=== PATIENT | female | born 1975 | race Caucasian/White ===

== ENCOUNTER 2016-07-27 00:02 | Emergency (ER) | payer MEDICAID ==
[~2016-07-27] VITALS: Ht 157.5 cm; Wt 104.3 kg
[2016-07-27] MEDS ORDERED: NKM (00:22)
[2016-07-27 00:27] VITALS: BP 138/72
[2016-07-27] MEDS ORDERED: Ipratropium 0.02% Inh Soln 2.5ml UD HHN ONE (00:45)
[2016-07-27] MEDS ORDERED: Solu-MEDROL 125mg Inj IVP ONE (00:45)
[2016-07-27] MEDS ORDERED: Albuterol ud Inhalation HHN ONE (00:45)
--- NOTE | 2016-07-27 00:47 | Emergency Room Report ---
History of Present Illness General Chief Complaint: Dyspnea/Respdistress Source: Patient Present Illness HPI Is a 41-year-old female with history of psoriasis. She presents with three-day history of coughing congestion. Worse tonight. Now with tightness in her chest. Pain with coughing. No fever or chills. Worse with exertion. Worse with laying flat. Lsvh-zjc-khredct medication not helping. No other complaint. No diaphoresis. Allergies: Coded Allergies: No Known Allergies (Unverified , 03/19/12) Patient History Past Medical History: see triage record, old chart reviewed Past Surgical History: none Pertinent Family History: none Social History: Denies: smoking Last Menstrual Period: now Now: No : 3 Para: 3 Immunizations: other Reviewed Nursing Documentation: PMH: Agreed, PSxH: Agreed Nursing Documentation-PMH Past Medical History: No Stated History Review of Systems Eye: Denies: blurred vision, eye pain ENT: Denies: ear pain, nose congestion, throat swelling Respiratory: Reports: cough, shortness of breath, sputum Cardiovascular: Denies: chest pain, palpitations Gastrointestinal: Denies: abdominal pain, diarrhea, nausea, vomiting Musculoskeletal: Denies: back pain, joint pain Skin: Denies: rash Neurological: Denies: headache, numbness Endocrine: Denies: increased thirst, increased urine Hematologic/Lymphatic: Denies: easy bruising All Other Systems: negative except mentioned in HPI Physical Exam Vital Signs Date Time Temp Pulse Resp B/P Pulse Ox O2 Delivery O2 Flow Rate FiO2 07/27/16 00:17 99.0 103 20 138/72 98 Room Air vitals unremarkable Sp02 EP Interpretation: reviewed, normal General Appearance: well appearing, alert, mild distress, obese Head: normocephalic, atraumatic Eyes: bilateral eye EOMI, bilateral eye PERRL ENT: hearing grossly normal, normal pharynx Neck: full range of motion, supple, no meningismus Respiratory: chest non-tender, accessory muscle use, wheezing Cardiovascular #1: regular rate, rhythm, no murmur Gastrointestinal: normal bowel sounds, non tender, no mass, no organomegaly, no bruit, non-distended Musculoskeletal: back normal, gait/station normal, normal range of motion Psychiatric: mood/affect normal Skin: warm/dry Medical Decision Making Diagnostic Impression: Primary Impression: Asthma exacerbation Additional Impression: Viral bronchitis ER Course Patient presents with a viral illness with bronchospasm and wheezing. Wheezing cleared after albuterol. She felt much better now. X-rays unremarkable. No evidence of pneumonia or ACS or PE to name a few. We'll discharge him. Lab Results Impression lab unremarkable EKG Diagnostic Results Rate: normal Rhythm: NSR ST Segments: no acute changes Rhythm Strip Diag. Results EP Interpretation: yes Rate: 90 Rhythm: NSR, no PVC's, no ectopy Chest X-Ray Diagnostic Results EP Interpretation: Yes Findings: no consolidation, no effusion, no pneumothorax, no acute cardiopulmonary disease Number of Views: 1 Last Vital Signs Date Time Temp Pulse Resp B/P Pulse Ox O2 Delivery O2 Flow Rate FiO2 07/27/16 00:41 97 27 Room Air 07/27/16 00:27 99.0 138/72 97 Status: improved Disposition: HOME, SELF-CARE Condition: Stable Scripts Prednisone* (PREDNISONE*) 20 Mg Tablet 60 MG ORAL DAILY, #15 TAB Prov: RINA MADRID M.D. 07/27/16 Albuterol Sulfate* (ALBUTEROL SULFATE MDI*) 8.5 Gm Hfa.aer.ad 2 PUFF INH Q4H Y for cough/wheezing, #1 EA 0 Refills Prov: RINA MADRID M.D. 07/27/16 Additional Instructions: Follow up with your doctor in 7 days. Return if worse. RINA MADRID M.D. Jul 27, 2016 00:47
[2016-07-27 01:47] VITALS: BP 134/64
[2016-07-27 02:05] LABS: BASOPHILS % (AUTO) 0.9 % (0.0-2.0); EOSINOPHILS % (AUTO) 4.3 % (0.0-3.0); LYMPHOCYTES % (AUTO) 18.1 % (20.0-45.0); MEAN CORPUSCULAR HEMOGLOBIN 26.7 PG (27.0-31.0); MEAN CORPUSCULAR HGB CONC 31.7 G/DL (32.0-36.0); MEAN CORPUSCULAR VOLUME 84 FL (80-99); MEAN PLATELET VOLUME 7.2 FL (6.5-10.1); MONOCYTES % (AUTO) 9.8 % (1.0-10.0); NEUTROPHILS % (AUTO) 66.8 % (45.0-75.0); PLATELET COUNT 343 K/UL (150-450); RED BLOOD COUNT 4.62 M/UL (4.20-5.40); RED CELL DISTRIBUTION WIDTH 13.2 % (11.6-14.8); WHITE BLOOD COUNT 12.4 K/UL (4.8-10.8)
[2016-07-27 02:32] LABS: CALCIUM 8.5 mg/dL (8.6-10.2); CARBON DIOXIDE 24 mEQ/L (20-30); CREATININE 0.7 mg/dL (0.5-0.9); GLOMERULAR FILTRATION RATE > 60 mL/min (>60)
[2016-07-27 02:44] LABS: ANION GAP 12 (5-15); CHLORIDE 103 mEQ/L (98-107); POTASSIUM 4.1 mEQ/L (3.4-4.9); SODIUM 139 mEQ/L (135-145)
[2016-07-27] MEDS ORDERED: ALBUTEROL SULF8.5 GM INH (02:53)
[2016-07-27] MEDS ORDERED: PREDNISONE20 MG ORAL (02:53)
[2016-07-27 03:18] VITALS: BP 147/86
--- NOTE | 2016-08-03 10:30 | Cardiology Report ---
APPROVED REPORT EKG Measurement Heart [id number] Normal sinus rhythm Normal ECG
--- NOTE | 2016-08-03 10:31 | Diagnostic Imaging Report ---
Indication: SOB Technique: One view of the chest Comparison: 01/13/2006 Findings: Body habitus limits evaluation. Lungs and pleural spaces are clear. Heart size is normal. There is no significant interim change Impression: No acute process
== END 2016-07-27 03:10 | disposition home or self-care (01) ==
LOC: EMR 00:47
DX: J45.901 Unspecified asthma with (acute) exacerbation (principal); J20.8 Acute bronchitis due to other specified organisms; L40.9 Psoriasis, unspecified
CPT/HCPCS: 36415; 71010; 80048; 85025; 93005; 94640; 94664; 96374; 99284; J2930

== ENCOUNTER 2016-12-06 22:02 | Emergency (ER) | payer MEDICAID ==
[~2016-12-06] VITALS: Ht 157.5 cm; Wt 99.8 kg
[~2016-12-06 22:02] MED LIST: ALBUTEROL SULF8.5 GM INH; NKM; PREDNISONE20 MG ORAL
[2016-12-06 22:25] VITALS: BP 134/49
--- NOTE | 2016-12-06 22:35 | Emergency Room Report ---
History of Present Illness General Chief Complaint: Vaginal Source: Patient Present Illness HPI Is a 41-year-old female who is 4, para 3, approximately 8 weeks . His base on the date. She scheduled for as an outpatient. she came in today with chief complaint of vaginal cramping and bleeding. onset tonight. no fever or chills. no nausea no vomiting. no urinary complaint. pain is crampy and 5/10. Allergies: Coded Allergies: No Known Allergies (Unverified , 03/19/12) Patient History Past Medical History: see triage record, old chart reviewed Past Surgical History: other Pertinent Family History: none Social History: Denies: smoking Last Menstrual Period: 10/13/16 Now: Yes : 4 Para: 3 Immunizations: other Reviewed Nursing Documentation: PMH: Agreed, PSxH: Agreed Nursing Documentation-PMH Hx Cardiac Problems: No - Psoriasis Review of Systems Eye: Denies: blurred vision, eye pain ENT: Denies: ear pain, nose congestion, throat swelling Respiratory: Denies: cough, shortness of breath Cardiovascular: Denies: chest pain, palpitations Gastrointestinal: Denies: abdominal pain, diarrhea, nausea, vomiting Musculoskeletal: Denies: back pain, joint pain Skin: Denies: rash Neurological: Denies: headache, numbness Endocrine: Denies: increased thirst, increased urine Hematologic/Lymphatic: Denies: easy bruising All Other Systems: negative except mentioned in HPI Physical Exam Vital Signs Date Time Temp Pulse Resp B/P Pulse Ox O2 Delivery O2 Flow Rate FiO2 12/06/16 22:15 98.4 87 22 134/49 97 Room Air vitals normal Sp02 EP Interpretation: reviewed, normal General Appearance: well appearing, no apparent distress, alert, obese Head: normocephalic, atraumatic Eyes: bilateral eye EOMI, bilateral eye PERRL ENT: hearing grossly normal, normal pharynx Neck: full range of motion, supple, no meningismus Respiratory: chest non-tender, lungs clear, normal breath sounds Cardiovascular #1: regular rate, rhythm, no murmur Gastrointestinal: normal bowel sounds, non tender, no mass, no organomegaly, no bruit, non-distended Musculoskeletal: back normal, gait/station normal, normal range of motion Neurologic: alert, oriented x3 Psychiatric: mood/affect normal Skin: warm/dry Medical Decision Making Diagnostic Impression: Primary Impression: in first trimester ER Course Patient presents with vaginal bleeding. While here she has a large clot was giving urine sample. Ultrasound unable to see any IUP. There was a lot of blood in the vaginal vault. Doubt that this is an ectopic. Most likely she has a miscarriage. Last Vital Signs Date Time Temp Pulse Resp B/P Pulse Ox O2 Delivery O2 Flow Rate FiO2 12/06/16 22:25 98.5 87 22 134/49 97 Room Air Status: improved Disposition: HOME, SELF-CARE Condition: Stable Scripts Ibuprofen* (MOTRIN*) 600 Mg Tablet 600 MG ORAL THREE TIMES A DAY, #30 TAB 0 Refills Prov: RINA MADRID M.D. 12/06/16 Referrals: NON PHYSICIAN (PCP) Additional Instructions: Followup with your [employer] within a week. Return for increasing pain, fever, chills, or any concern. RINA MADRID M.D. December 06, 2016 22:35
[2016-12-06 22:54] LABS: BASOPHILS % (AUTO) 1.5 % (0.0-2.0); EOSINOPHILS % (AUTO) 3.2 % (0.0-3.0); LYMPHOCYTES % (AUTO) 30.8 % (20.0-45.0); MEAN CORPUSCULAR HEMOGLOBIN 28.6 PG (27.0-31.0); MEAN CORPUSCULAR HGB CONC 33.6 G/DL (32.0-36.0); MEAN CORPUSCULAR VOLUME 85 FL (80-99); MEAN PLATELET VOLUME 6.8 FL (6.5-10.1); MONOCYTES % (AUTO) 9.4 % (1.0-10.0); NEUTROPHILS % (AUTO) 55.1 % (45.0-75.0); PLATELET COUNT 332 K/UL (150-450); RED BLOOD COUNT 4.49 M/UL (4.20-5.40); RED CELL DISTRIBUTION WIDTH 14.1 % (11.6-14.8); WHITE BLOOD COUNT 11.2 K/UL (4.8-10.8)
[2016-12-06 22:57] LABS: APPEARANCE,URINE TURBID; KETONES,URINE NEGATIVE (NEGATIVE); LEUKOCYTE ESTERASE ,URINE NEGATIVE (NEGATIVE); NITRITE,URINE NEGATIVE (NEGATIVE); PH,URINE 7 (4.5-8.0); PROTEIN,URINE 3+ (NEGATIVE); UROBILINOGEN,URINE NORMAL MG/DL (0.0-1.0)
[2016-12-06 22:59] LABS: RBC,URINE TNTC /HPF (0 - 2); WBC,URINE 0-2 /HPF (0 - 2)
[2016-12-06 23:17] LABS: ANION GAP 16 (5-15); CALCIUM 9.7 mg/dL (8.6-10.2); CARBON DIOXIDE 23 mEQ/L (20-30); CHLORIDE 98 mEQ/L (98-107); CREATININE 0.7 mg/dL (0.5-0.9); GLOMERULAR FILTRATION RATE > 60 mL/min (>60); HEMOLYSIS 1; POTASSIUM 4.2 mEQ/L (3.4-4.9); SODIUM 137 mEQ/L (135-145)
[2016-12-06] MEDS ORDERED: Ketorolac 30mg Inj IV ONE (23:45)
[2016-12-06] MEDS ORDERED: IBUPROFEN600 MG ORAL (23:49)
[2016-12-06 23:58] VITALS: BP 131/53
--- NOTE | 2016-12-07 09:45 | Diagnostic Imaging Report ---
Indication: 41-year-old reportedly female with bleeding. Technique: Transabdominal and endovaginal pelvic ultrasound. Comparison: None Findings: Examination is markedly limited by habitus. The uterus grossly measures 10.8 x 7.5 x 7.0 cm. A definitive intrauterine is not identified. The endometrial echo complex is not adequately seen. Cervical nabothian cyst is present. The right ovary grossly measures 5.1 x 2.3 cm. The left ovary is not seen. Impression: Markedly limited examination without definitive identification of intrauterine . Differential considerations could include spontaneous or intrauterine too early to detect sonographically. In the absence of a documented intrauterine , ectopic cannot be excluded. Correlation with beta hCG recommended. Repeat ultrasound recommended.
== END 2016-12-06 23:58 | disposition home or self-care (01) ==
LOC: EMR 22:11
DX: O03.9 Complete or unspecified spontaneous abortion without complication (principal)
CPT/HCPCS: 36415; 76830; 76856; 80048; 81003; 84702; 85025; 96374; 99284; J1885

== ENCOUNTER 2017-09-03 16:24 | Emergency (ER) | payer MEDICAID, OTHER ==
[~2017-09-03] VITALS: Ht 157.5 cm; Wt 99.8 kg
[~2017-09-03 16:24] MED LIST changes: +IBUPROFEN600 MG ORAL
--- NOTE | 2017-09-03 18:09 | Emergency Room Report ---
History of Present Illness General Chief Complaint: Eye Problems Source: Patient Present Illness HPI 42-year-old female presents to the emergency department complaining of 3/10 in severity discomfort to the eyelid of the right eye x2 days. Patient reports symptoms are progressive she denies erythema she reports a palpable "ball" on her eyelid. Patient reports some mild discomfort especially after palpation. Patient denies visual changes, discharge of the eye, scratching sensation. Denies: Eye Pain with movements, eye Redness, Loss of vision, Floaters, Flashing lights, Diplopia/blurry vision, Increased tearing. Allergies: Coded Allergies: No Known Allergies (Unverified , 03/19/12) Patient History Past Medical History: see triage record Past Surgical History: none Pertinent Family History: none Last Menstrual Period: 2-4 Now: No Reviewed Nursing Documentation: PMH: Agreed, PSxH: Agreed Nursing Documentation-PMH Past Medical History: No History, Except For Review of Systems All Other Systems: negative except mentioned in HPI Physical Exam Vital Signs Date Time Temp Pulse Resp B/P (MAP) Pulse Ox O2 Delivery O2 Flow Rate FiO2 09/03/17 16:26 97.9 97 18 117/63 98 Room Air Sp02 EP Interpretation: reviewed, normal General Appearance: no apparent distress, alert, GCS 15, non-toxic Head: normocephalic, atraumatic Eyes: right eye other - flesh colored papule, localized and well circumscribed to the right lateral lower eyelid, no erythema, no pus, no blisters or vesicles. no scleral injection, no photophopia. , bilateral eye normal inspection, bilateral eye PERRL, bilateral eye EOMI ENT: hearing grossly normal, normal voice Neck: full range of motion Respiratory: lungs clear, normal breath sounds, speaking full sentences Cardiovascular #1: regular rate, rhythm Musculoskeletal: back normal, gait/station normal, normal range of motion Neurologic: alert, oriented x3, responsive, motor strength/tone normal, sensory intact, normal gait, speech normal, grossly normal Psychiatric: judgement/insight normal Skin: normal color, no rash, warm/dry, well hydrated Medical Decision Making PA Attestation Dr Garcia is my supervising Physician whom patient management has been discussed with. Diagnostic Impression: Primary Impression: Stye external Qualified Codes: H00.012 - Hordeolum externum right lower eyelid ER Course 42-year-old female presents to the emergency department complaining of 3/10 in severity discomfort to the eyelid of the right eye x2 days. Patient reports symptoms are progressive she denies erythema she reports a palpable "ball" on her eyelid. Patient reports some mild discomfort especially after palpation. Patient denies visual changes, discharge of the eye, scratching sensation. Denies: Eye Pain with movements, eye Redness, Loss of vision, Floaters, Flashing lights, Diplopia/blurry vision, Increased tearing. Ddx considered but are not limited to: FB, Corneal Ulcer, conjunctivitis. Iridis, hordeolum, chalazion. Vital signs: are WNL, pt. is afebrile H&PE are most consistent with: hordeolum externum of the Right lower lateral eyelid. ORDERS: None required at this time ED INTERVENTIONS: none at this time. d/w pt. conservative treatment, and to follow up with a primary care provider. pt given a list of primary care clinics for follow up. d/w pt. to return to the ED with worsening or new symptoms. DISCHARGE: At this time pt. is stable for d/c to home. Will provide printed patient care instructions, and any necessary prescriptions. Care plan and follow up instructions have been discussed with the patient prior to discharge. Last Vital Signs Date Time Temp Pulse Resp B/P (MAP) Pulse Ox O2 Delivery O2 Flow Rate FiO2 09/03/17 16:26 97.9 97 18 117/63 98 Room Air Disposition: HOME, SELF-CARE Condition: Stable Scripts Ibuprofen* (MOTRIN*) 400 Mg Tablet 400 MG ORAL THREE TIMES A DAY, #20 TAB 0 Refills Prov: Nicol Lares P.Laila 09/03/17 Erythromycin Base (Erythromycin) 1 Gm Oint...g. 1 APPLIC OP TID, #1 GM 2 Refills Prov: Nicol Lares P.AMaynor 09/03/17 Referrals: [facility],REFERRING (PCP) Patient Instructions: Yazan Additional Instructions: Take medications as directed. Follow up with a [employer] Operator in 3 days, even if your symptoms have resolved. --Please review list of primary care clinics, if you do not already have a primary care provider Return sooner to ED if new symptoms occur, or current symptoms become worse. - Please note that this Emergency Department Report was dictated using [employer] team member technology software, occasionally this can lead to erroneous entry secondary to interpretation by the dictation equipment. Nicol Lares Sep 03, 2017 18:09
[2017-09-03] MEDS ORDERED: ERYTHROMYCIN1 G1 OP (18:10)
[2017-09-03] MEDS ORDERED: IBUPROFEN400 MG ORAL (18:10)
[2017-09-03 18:25] VITALS: BP 120/78
== END 2017-09-03 18:25 | disposition home or self-care (01) ==
LOC: EMR 17:25
DX: H00.023 Hordeolum internum right eye, unspecified eyelid (principal)
CPT/HCPCS: 99283

== ENCOUNTER 2018-02-27 06:19 | Emergency (ER) | payer SELFPAY ==
[~2018-02-27] VITALS: Ht 157.5 cm; Wt 99.8 kg
[~2018-02-27 06:19] MED LIST changes: +ACETAMINOPHEN-1 EAC1 ORAL; +BACITRACIN15 GM TOPIC; +ERYTHROMYCIN1 G1 OP; +IBUPROFEN400 MG ORAL
--- NOTE | 2018-02-27 06:33 | Emergency Room Report ---
History of Present Illness General Chief Complaint: Wound Recheck/Suture Removal Source: Patient Present Illness HPI Patient states she is here for suture removal. She had sutures placed in her left for had one week ago. She has no other complaints. Allergies: Coded Allergies: No Known Allergies (Unverified , 03/19/12) Patient History Past Medical History: other - psoriasis Past Surgical History: none Social History: Denies: smoking, alcohol use, drug use Last Menstrual Period: february 21 Now: No Reviewed Nursing Documentation: PMH: Agreed; PSxH: Agreed Review of Systems All Other Systems: negative except mentioned in HPI Physical Exam Vital Signs Date Time Temp Pulse Resp B/P (MAP) Pulse Ox O2 Delivery O2 Flow Rate FiO2 02/27/18 06:20 98.1 77 18 124/71 96 Room Air 98.1 Sp02 EP Interpretation: reviewed, normal General Appearance: no apparent distress, alert, GCS 15, non-toxic Head: normocephalic, other - Healing L. forehead laceration with sutures in place. Eyes: bilateral eye normal inspection, bilateral eye PERRL ENT: hearing grossly normal, normal pharynx, no angioedema, normal voice Neck: normal inspection, full range of motion Respiratory: no respiratory distress, no retraction, no accessory muscle use, speaking full sentences Rectal: deferred Musculoskeletal: gait/station normal, normal range of motion Neurologic: alert, oriented x3, responsive, motor strength/tone normal, sensory intact, speech normal Psychiatric: judgement/insight normal, memory normal, mood/affect normal, no suicidal/homicidal ideation Skin: normal color, no rash, warm/dry, well hydrated, other - See above in Head Medical Decision Making Diagnostic Impression: Primary Impression: Encounter for removal of sutures ER Course This patient presents for removal of sutures. The wound is healing well and the sutures were removed without complication or incident. The patient is given wound care precautions and follow-up instructions. Last Vital Signs Date Time Temp Pulse Resp B/P (MAP) Pulse Ox O2 Delivery O2 Flow Rate FiO2 02/27/18 06:20 98.1 77 18 124/71 96 Room Air 98.1 Status: improved Disposition: HOME, SELF-CARE Condition: Improved Referrals: NOT CHOSEN [facility]/,REFERRING (PCP) Lina Doe DO Feb 27, 2018 06:33
[2018-02-27 07:02] VITALS: BP 125/64
== END 2018-02-27 07:10 | disposition home or self-care (01) ==
LOC: EMR 06:26
DX: S01.81XD Laceration without foreign body of other part of head, subsequent encounter (principal); X58.XXXD Exposure to other specified factors, subsequent encounter; Z48.02 Encounter for removal of sutures
CPT/HCPCS: 99282

== ENCOUNTER 2019-02-01 17:56 | Emergency (ER) | payer SELFPAY ==
[~2019-02-01] VITALS: Ht 157.5 cm; Wt 104.3 kg
[2019-02-01 18:05] VITALS: BP 140/84
--- NOTE | 2019-02-01 18:05 | NUR ---
ED Nurse Note: pt walked in due to bilateral lower extremity pain and swelling started 6 days ago. pt also complains of itchiness. pt stated she was diagnosed with psoriasis in her childhood, skin rash noted on pt bilateral leg and swelling as well, psoriasis noted on pt back and shoulder area. pt seen by manju. will continue to monitor.
[2019-02-01] MEDS ORDERED: Solu-MEDROL 125mg Inj IVP ONE (18:15)
[2019-02-01] MEDS ORDERED: DiphenhydrAMINE 50mg/ml Inj IVP ONE (18:15)
--- NOTE | 2019-02-01 18:23 | NUR ---
ED Nurse Note: pt medicated as ordered, pt able to tolerate. will continue to monitor.
--- NOTE | 2019-02-01 18:29 | NUR ---
ED Nurse Note: xray on bedside.
[2019-02-01 18:45] LABS: BASOPHILS % (AUTO) 1.4 % (0.0-2.0); EOSINOPHILS % (AUTO) 1.7 % (0.0-3.0); HEMATOCRIT 36.2 % (37.0-47.0); MEAN CORPUSCULAR VOLUME 79 FL (80-99); MONOCYTES % (AUTO) 8.2 % (1.0-10.0); NEUTROPHILS % (AUTO) 73.6 % (45.0-75.0); PLATELET COUNT 373 K/UL (150-450); RED BLOOD COUNT 4.58 M/UL (4.20-5.40); RED CELL DISTRIBUTION WIDTH 15.4 % (11.6-14.8); WHITE BLOOD COUNT 11.4 K/UL (4.8-10.8)
[2019-02-01 18:47] LABS: ANION GAP 12 mmol/L (5-15); BLOOD UREA NITROGEN 8 mg/dL (7-18); CARBON DIOXIDE 25 MMOL/L (21-32); CHLORIDE 100 MMOL/L (98-107); CREATININE 0.8 MG/DL (0.55-1.30); POTASSIUM 3.7 MMOL/L (3.5-5.1); SODIUM 137 MMOL/L (136-145)
[2019-02-01 19:01] LABS: ALANINE AMINOTRANSFERASE 21 U/L (12-78); ALBUMIN 3.6 G/DL (3.4-5.0); ALBUMIN/GLOBULIN RATIO 0.8 (1.0-2.7); ALKALINE PHOSPHATASE 102 U/L (46-116); ASPARTATE AMINO TRANSFERASE 28 U/L (15-37); BILIRUBIN,TOTAL 0.3 MG/DL (0.2-1.0); CKMB 1.4 NG/ML (0.0-3.6); CREATINE KINASE 171 U/L (26-308)
--- NOTE | 2019-02-01 19:34 | Emergency Room Report ---
History of Present Illness General Chief Complaint: Edema Source: Patient Present Illness HPI Patient presents with complaints of exacerbation of her psoriasis reports that she has underlying diagnosis of this Condition however feels that over the past several days she has had increased exacerbation rash involving the lower extremities upper back area the area is Pleuritic in nature she also has noticed some mild swelling with this Denies any fevers or chills denies any chest pain or shortness of breath denies any vomiting or diarrhea denies any change in medications Allergies: Coded Allergies: No Known Allergies (Unverified , 03/19/12) Patient History Past Medical History: see triage record Pertinent Family History: none Last Menstrual Period: 01/12/19 Now: No Reviewed Nursing Documentation: PMH: Agreed; PSxH: Agreed Nursing Documentation-PMH Past Medical History: No History, Except For Review of Systems All Other Systems: negative except mentioned in HPI Physical Exam Vital Signs Date Time Temp Pulse Resp B/P (MAP) Pulse Ox O2 Delivery O2 Flow Rate FiO2 02/01/19 17:58 98.4 106 21 140/84 (102) 96 Sp02 EP Interpretation: reviewed, normal General Appearance: well appearing, no apparent distress Head: normocephalic, atraumatic Eyes: bilateral eye PERRL, bilateral eye EOMI ENT: hearing grossly normal, normal pharynx, TMs + canals normal, uvula midline Neck: full range of motion, supple, no meningismus, no bony tend Respiratory: lungs clear, normal breath sounds, no rhonchi, no respiratory distress, no retraction, no accessory muscle use Cardiovascular #1: normal peripheral pulses, regular rate, rhythm, no edema, no gallop, no JVD, no murmur Gastrointestinal: normal bowel sounds, non tender, soft, no mass, no organomegaly, non-distended, no guarding, no hernia, no pulsatile mass, no rebound Genitourinary: no CVA tenderness Musculoskeletal: normal inspection Neurologic: oriented x3, responsive, 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 as tested, motor strength/ tone normal, sensory intact Psychiatric: mood/affect normal Skin: rash - Maculopapular rash involving the lower extremities there is also nonspecific, rash involving the upper back in the upper chest area, nondermatomal in nature fine erythematous hue with mild central raised appearance no obvious target cell appearance no blister formation Lymphatic: normal inspection, no adenopathy Medical Decision Making Diagnostic Impression: Primary Impression: Rash Additional Impression: Psoriasis ER Course Multiple differentials and consideration Patient appears to be having a flare of her psoriasis Given the other complaints of swelling and discomfort further extensive work-up was initiated for cardiac, cardiopulmonary, renal type differentials Patient's other blood work is appropriate x-ray imaging does not show any acute pathology patient's rash is significantly improved after initial intervention patient requires close outpatient follow-up Labs Test 02/01/19 18:18 White Blood Count 11.4 K/UL (4.8-10.8) Red Blood Count 4.58 M/UL (4.20-5.40) Hemoglobin 11.0 G/DL (12.0-16.0) Hematocrit 36.2 % (37.0-47.0) Mean Corpuscular Volume 79 FL (80-99) Mean Corpuscular Hemoglobin 24.0 PG (27.0-31.0) Mean Corpuscular Hemoglobin Concent 30.3 G/DL (32.0-36.0) Red Cell Distribution Width 15.4 % (11.6-14.8) Platelet Count 373 K/UL (150-450) Mean Platelet Volume 6.2 FL (6.5-10.1) Neutrophils (%) (Auto) 73.6 % (45.0-75.0) Lymphocytes (%) (Auto) 15.0 % (20.0-45.0) Monocytes (%) (Auto) 8.2 % (1.0-10.0) Eosinophils (%) (Auto) 1.7 % (0.0-3.0) Basophils (%) (Auto) 1.4 % (0.0-2.0) Sodium Level 137 MMOL/L (136-145) Potassium Level 3.7 MMOL/L (3.5-5.1) Chloride Level 100 MMOL/L (98-107) Carbon Dioxide Level 25 MMOL/L (21-32) Anion Gap 12 mmol/L (5-15) Blood Urea Nitrogen 8 mg/dL (7-18) Creatinine 0.8 MG/DL (0.55-1.30) Estimat Glomerular Filtration Rate > 60 mL/min (>60) Glucose Level 126 MG/DL (74-106) Calcium Level 9.0 MG/DL (8.5-10.1) Total Bilirubin 0.3 MG/DL (0.2-1.0) Aspartate Amino Transf (AST/SGOT) 28 U/L (15-37) Alanine Aminotransferase (ALT/SGPT) 21 U/L (12-78) Alkaline Phosphatase 102 U/L (46-116) Total Creatine Kinase 171 U/L (26-308) Creatine Kinase MB 1.4 NG/ML (0.0-3.6) Creatine Kinase MB Relative Index 0.8 Troponin I 0.000 ng/mL (0.000-0.056) Pro-B-Type Natriuretic Peptide 40 pg/mL (0-125) Total Protein 8.0 G/DL (6.4-8.2) Albumin 3.6 G/DL (3.4-5.0) Globulin 4.4 g/dL Albumin/Globulin Ratio 0.8 (1.0-2.7) Rhythm Strip Diag. Results EP Interpretation: yes Rate: 77 Rhythm: NSR, no PVC's, no ectopy Chest X-Ray Diagnostic Results Chest X-Ray Diagnostic Results : Chest X-Ray Ordered: Yes # of Views/Limited/Complete: 1 View Indication: Chest Pain EP Interpretation: Yes Interpretation: no consolidation, no effusion, no pneumothorax Impression: No acute disease Electronically Signed by: Nakia Duarte DO Last Vital Signs Date Time Temp Pulse Resp B/P (MAP) Pulse Ox O2 Delivery O2 Flow Rate FiO2 02/01/19 18:05 106 21 02/01/19 18:05 98.4 140/84 96 Status: improved Disposition: HOME, SELF-CARE Condition: Improved Scripts Hydrocortisone/Aloe Vera 1%* (HYDROCORTISONE-ALOE 1% CREAM*) Y Cr 1 APPLIC TOPIC Q6H PRN for Itching for 7 Days, #30 GM Prov: Nakia Duarte DO 02/01/19 Diphenhydramine Hcl* (BENADRYL*) 25 Mg Capsule 25 MG ORAL Q6H PRN for Itching, #20 CAP Prov: Nakia Duarte DO 02/01/19 Methylprednisolone (Methylprednisolone*) 4MG Dspk 4 MG ORAL DIRECTED for 6 Days, #21 EA 0 Refills Day 1: Two tablets before breakfast, one after lunch, one after dinner, and two at bedtime. If started late in the day, take all six tablets at once or divide into two or three doses, unless otherwise directed by prescriber. Day 2: One tablet before breakfast, one after lunch, one after dinner, and two at bedtime Day 3: One tablet before breakfast, one after lunch, one after dinner, and one at bedtime Day 4: One tablet before breakfast, one after lunch, and one at bedtime Day 5: One tablet before breakfast and one at bedtime Day 6: One tablet before breakfast Prov: Nakia Duarte DO 02/01/19 Additional Instructions: Patient is provided with the discharge instructions notified to follow up with primary doctor in the next 2-3 days otherwise return to the er with any worsening symptoms. Please note that this report is being documented using [employer] technology. This can lead to erroneous entry secondary to incorrect interpretation by the dictating instrument. Nakia Duarte DO Feb 01, 2019 19:34
[2019-02-01 19:57] VITALS: BP 106/57
[2019-02-01] MEDS ORDERED: MEDROL DOSEPAK4 MG ORAL (20:51)
[2019-02-01] MEDS ORDERED: BENADRYL25 MG ORAL (20:51)
[2019-02-01] MEDS ORDERED: HYDROCORTISONE-30 GM TOPIC (20:51)
[2019-02-01 21:13] VITALS: BP 115/65
--- NOTE | 2019-02-01 21:13 | NUR ---
ER DISCHARGE NOTE: Patient is cleared to be discharged per ERMD, pt is aox4, on room air, with stable vital signs. pt was given dc and prescription instructions, pt was able to verbalize understanding, pt id band and iv site removed without complications. pt is able to ambulate with steady gait. pt took all belongings and left with her daughter.
--- NOTE | 2019-02-02 10:34 | Diagnostic Imaging Report ---
Indication: Reason For Exam: SOB Technique: One view of the chest Comparison: 07/27/2016 Findings: Lungs and pleural spaces are clear. Heart size is normal. No significant interim change Impression: No acute process This agrees with the preliminary interpretation provided by the emergency room physician
== END 2019-02-01 21:20 | disposition home or self-care (01) ==
LOC: EMR 21:16
DX: L40.9 Psoriasis, unspecified (principal); R21 Rash and other nonspecific skin eruption
CPT/HCPCS: 36415; 71045; 80053; 82550; 82553; 83880; 84484; 85025; 93005; 96374; 96375; 99284; J1200; J2930

== ENCOUNTER 2019-03-29 19:56 | Emergency (ER) | payer MEDICAID, OTHER ==
[~2019-03-29] VITALS: Ht 157.5 cm; Wt 99.8 kg
[~2019-03-29 19:56] MED LIST changes: +BENADRYL25 MG ORAL; +HYDROCORTISONE-30 GM TOPIC; +MEDROL DOSEPAK4 MG ORAL
[2019-03-29 20:33] VITALS: BP 144/63
[2019-03-29] MEDS ORDERED: PREDNISONE20 MG ORAL (21:24)
[2019-03-29] MEDS ORDERED: CEPHALEXIN500 MG ORAL (21:24)
--- NOTE | 2019-03-29 21:24 | Emergency Room Report ---
History of Present Illness General Chief Complaint: Skin Rash/Abscess Source: Patient, Medical Record Present Illness HPI This is a 43-year-old female with a history of psoriasis. She has psoriasis outbreak is getting worse since December. Her doctor prescribed steroid cream is not helping. She has a referral to see a specialist but still waiting for them to call her for appointment. Rash is getting worse. Also painful. No fever chills but no nausea no vomiting. Denies any other complaint. Pain is 7 out of 10. Allergies: Coded Allergies: No Known Allergies (Unverified , 03/19/12) Patient History Past Medical History: see triage record, old chart reviewed Past Surgical History: none Pertinent Family History: none Social History: Denies: smoking Now: No Immunizations: other Reviewed Nursing Documentation: PMH: Agreed; PSxH: Agreed Nursing Documentation-PMH Past Medical History: No History, Except For Review of Systems Eye: Denies: eye pain, blurred vision ENT: Denies: ear pain, nose congestion, throat swelling Respiratory: Denies: cough, shortness of breath Cardiovascular: Denies: chest pain, palpitations Gastrointestinal: Denies: abdominal pain, diarrhea, nausea, vomiting Musculoskeletal: Denies: back pain, joint pain Skin: Reports: rash Neurological: Denies: headache, numbness Endocrine: Denies: increased thirst, increased urine Hematologic/Lymphatic: Denies: easy bruising All Other Systems: negative except mentioned in HPI Physical Exam Vital Signs Date Time Temp Pulse Resp B/P (MAP) Pulse Ox O2 Delivery O2 Flow Rate FiO2 03/29/19 20:06 98.2 99 18 144/63 (90) 97 Room Air Vitals unremarkable Sp02 EP Interpretation: reviewed, normal General Appearance: well appearing, no apparent distress, alert Head: normocephalic, atraumatic Eyes: bilateral eye PERRL, bilateral eye EOMI ENT: hearing grossly normal, normal pharynx Neck: full range of motion, supple, no meningismus Respiratory: chest non-tender, lungs clear, normal breath sounds Cardiovascular #1: regular rate, rhythm, no murmur Gastrointestinal: normal bowel sounds, non tender, no mass, no organomegaly, no bruit, non-distended Musculoskeletal: back normal, gait/station normal, normal range of motion Psychiatric: mood/affect normal Skin: other - extensive psoriasis rash on her torso and legs. Medical Decision Making Diagnostic Impression: Primary Impression: Psoriasis ER Course She with outbreak of psoriasis. We will put her on oral steroid. No evidence of abscess. Worrisome for possible secondary cellulitis. We will put him on antibiotics also. Last Vital Signs Date Time Temp Pulse Resp B/P (MAP) Pulse Ox O2 Delivery O2 Flow Rate FiO2 03/29/19 20:33 98.2 99 18 144/63 97 Room Air Status: unchanged Disposition: HOME, SELF-CARE Condition: Stable Scripts Prednisone* (PREDNISONE*) 20 Mg Tablet 40 MG ORAL DAILY, #14 TAB Prov: Keagan Solorio MD 03/29/19 Cephalexin* (KEFLEX*) 500 Mg Capsule 500 MG ORAL TID, #21 CAP Prov: Keagan Solorio MD 03/29/19 Additional Instructions: Follow-up with your doctor in 7 days. Contact the specialist for appointment. Return if symptoms worsen. Keagan Solorio MD Mar 29, 2019 21:24
[2019-03-29 21:32] VITALS: BP 138/75
[2019-03-29 21:33] VITALS: BP 138/75
== END 2019-03-29 23:22 | disposition home or self-care (01) ==
LOC: EMR 21:20
DX: L40.9 Psoriasis, unspecified (principal)
CPT/HCPCS: 99282

== ENCOUNTER 2019-05-08 04:53 | Emergency (ER) | payer MEDICAID ==
[~2019-05-08] VITALS: Ht 157.5 cm; Wt 97.5 kg
[~2019-05-08 04:53] MED LIST changes: +CEPHALEXIN500 MG ORAL
[2019-05-08] MEDS ORDERED: OTEZLA1 EACH PO (05:01)
[2019-05-08] MEDS ORDERED: PREDNISONE20 MG ORAL (05:19)
[2019-05-08] MEDS ORDERED: CEPHALEXIN500 MG ORAL (05:19)
[2019-05-08 05:25] VITALS: BP 151/79
--- NOTE | 2019-05-08 06:13 | Emergency Room Report ---
History of Present Illness General Chief Complaint: Pain Source: Patient Present Illness HPI 43-year-old female presents ED for evaluation. complaining of rash and swelling to her legs. Has been diagnosed with psoriasis. Been seen here previously for similar presentation. Denies fevers or chills. Denies pain. Was recently seen by dermatology and prescribed Otezla. States she is on day 5 with the medication. States that there was initially increased redness which she says is resolving. Patient is sure is not sure that the medication is working. No other aggravating relieving factors. Denies any other associated symptoms Allergies: Coded Allergies: No Known Allergies (Unverified , 03/19/12) Patient History Past Medical History: other - psorasis Past Surgical History: none Pertinent Family History: none Social History: Denies: smoking, alcohol use, drug use Last Menstrual Period: 04/13 Now: No Immunizations: UTD Reviewed Nursing Documentation: PMH: Agreed; PSxH: Agreed Nursing Documentation-PMH Past Medical History: No History, Except For Review of Systems All Other Systems: negative except mentioned in HPI Physical Exam Vital Signs Date Time Temp Pulse Resp B/P (MAP) Pulse Ox O2 Delivery O2 Flow Rate FiO2 05/08/19 04:57 98.2 99 12 151/79 (103) 96 Room Air Sp02 EP Interpretation: reviewed, normal General Appearance: no apparent distress, alert, GCS 15, non-toxic, obese Head: normocephalic Eyes: bilateral eye normal inspection, bilateral eye PERRL ENT: normal ENT inspection Neck: normal inspection Respiratory: normal inspection Cardiovascular #1: normal inspection Gastrointestinal: normal inspection Rectal: deferred Genitourinary: no CVA tenderness Musculoskeletal: back normal, gait/station normal, normal range of motion, non- tender Neurologic: alert, oriented x3, responsive, motor strength/tone normal, sensory intact, speech normal Psychiatric: normal inspection Skin: rash - psoriatic plaques diffusely to bilateral lower extremities. erthematous. no discharge Lymphatic: normal inspection Medical Decision Making Diagnostic Impression: Primary Impression: Psoriasis ER Course Hospital Course 43 yo F presents with swelling, rash to lower extremities Differential diagnoses include: Cellulitis, dermatitis, insect bite, abscess Clinical course Patient placed on stretcher. After initial history, physical exam reveals a female in no acute distress. On exam there appears to be psoriatic plaques noted to both lower extremities. There is surrounding erythema. No discharge. No fluctuance. No weeping. Patient is on day 5 of Otezla. There could be some signs of cellulitis to the legs but patient states it does appear improved compared to previously. Patient afebrile. Non-toxic appearing. Vitals stable. I encourage patient to continue the Otezla. We will add Keflex and prednisone. Safe for discharge for close outpatient follow-up. States she will follow-up with her steel analyst Diagnosis - psoriasis stable and discharged to home with prescription for keflex, prednisone. continue otezla. Instructed to followup with PMD/dermatology. Instructed return to ED if symptoms recur or worsen Last Vital Signs Date Time Temp Pulse Resp B/P (MAP) Pulse Ox O2 Delivery O2 Flow Rate FiO2 05/08/19 05:25 98.2 12 151/79 96 Room Air 05/08/19 04:57 99 Status: improved Disposition: HOME, SELF-CARE Condition: Stable Scripts Cephalexin* (KEFLEX*) 500 Mg Capsule 500 MG ORAL EVERY 6 HOURS for 7 Days, #28 CAP Prov: Jay Bolton MD 05/08/19 Prednisone* (PREDNISONE*) 20 Mg Tablet 40 MG ORAL DAILY for 7 Days, #14 TAB Prov: Jay Bolton MD 05/08/19 Referrals: NON PHYSICIAN (PCP) Patient Instructions: Psoriasis, [id number] Jay Bolton MD May 08, 2019 06:13
== END 2019-05-08 05:25 | disposition home or self-care (01) ==
LOC: EMR 05:15
DX: L40.9 Psoriasis, unspecified (principal)
CPT/HCPCS: 99282

== ENCOUNTER 2019-05-23 00:24 | Emergency (ER) | payer MEDICAID ==
[~2019-05-23] VITALS: Ht 157.5 cm; Wt 98.4 kg
[~2019-05-23 00:24] MED LIST changes: +OTEZLA1 EACH PO
[2019-05-23 00:50] VITALS: BP 160/60
--- NOTE | 2019-05-23 00:50 | NUR ---
ED Nurse Note: PT AMBULATED TO ED C/O BILATERAL LEG PAIN D/T PSORIASIS. PT STATES SHE WAS SEEN AT [facility] [place] 2 WEEKS AGO FOR THE SAME REASON. PT WAS PRESCRIBED, CEPHALEXIN AND PREDNISONE AND STATED THAT IT WAS WORKED BUT WISHES TO HAVE A MEDICATION REFILL BEFORE SEEING HER SPECIALIST. PATIENT A&OX4, NO SOB. BREATHING EVEN AND UNLABORED. AFEBRILE. ABLE TO WALK WITH STEADY GAIT. DAUGHTER AT BEDSIDE.
[2019-05-23] MEDS ORDERED: HYDROcodone/Acetamin 5/325 tab ORAL ONE (01:15)
[2019-05-23] MEDS ORDERED: PREDNISONE10 MG ORAL (01:17)
[2019-05-23] MEDS ORDERED: HYDROCODON-ACE1 EA15 ORAL (01:17)
--- NOTE | 2019-05-23 01:17 | Emergency Room Report ---
History of Present Illness General Chief Complaint: Medication Refill Source: Patient Present Illness HPI This is a 43-year-old female with history of psoriasis. She presents with chief complaint of bilateral leg pain and psoriasis outbreak. Onset for about a week. She was getting better on the prednisone but unable to see her electronic systems technician until May 31. She complained of increasing edema and no fever chills but no nausea no vomiting. Denies any other complaint. Pain is 7 out of 10. Similar symptom in the past. Allergies: Coded Allergies: No Known Allergies (Unverified , 03/19/12) Patient History Past Medical History: see triage record, old chart reviewed Past Surgical History: none Pertinent Family History: none Social History: Denies: smoking Last Menstrual Period: 05/16/19 Now: No Immunizations: other Reviewed Nursing Documentation: PMH: Agreed; PSxH: Agreed Nursing Documentation-PMH Past Medical History: No Stated History Review of Systems Eye: Denies: eye pain, blurred vision ENT: Denies: ear pain, nose congestion, throat swelling Respiratory: Denies: cough, shortness of breath Cardiovascular: Denies: chest pain, palpitations Gastrointestinal: Denies: abdominal pain, diarrhea, nausea, vomiting Musculoskeletal: Denies: back pain, joint pain Skin: Reports: rash Neurological: Denies: headache, numbness Endocrine: Denies: increased thirst, increased urine Hematologic/Lymphatic: Denies: easy bruising All Other Systems: negative except mentioned in HPI Physical Exam Vital Signs Date Time Temp Pulse Resp B/P (MAP) Pulse Ox O2 Delivery O2 Flow Rate FiO2 05/23/19 00:42 97.5 90 15 160/60 (93) 98 Room Air Vitals with high blood pressure Sp02 EP Interpretation: reviewed, normal General Appearance: well appearing, no apparent distress, alert Head: normocephalic, atraumatic Eyes: bilateral eye PERRL, bilateral eye EOMI ENT: hearing grossly normal, normal pharynx Neck: full range of motion, supple, no meningismus Respiratory: chest non-tender, lungs clear, normal breath sounds Cardiovascular #1: regular rate, rhythm, no murmur Gastrointestinal: normal bowel sounds, non tender, no mass, no organomegaly, no bruit, non-distended Musculoskeletal: back normal, gait/station normal, normal range of motion, other - Lower extremities with sporadic rash from the knee down to the ankles. Psychiatric: mood/affect normal Medical Decision Making Diagnostic Impression: Primary Impression: Psoriasis ER Course Patient presents with psoriasis outbreak. No evidence of infection. Will discharge home. Last Vital Signs Date Time Temp Pulse Resp B/P (MAP) Pulse Ox O2 Delivery O2 Flow Rate FiO2 05/23/19 00:50 97.5 75 15 160/60 98 Room Air Status: improved Disposition: HOME, SELF-CARE Condition: Stable Scripts Prednisone* (PREDNISONE*) 10 Mg Tablet 10 MG ORAL DAILY, #37 TAB 0 Refills Prov: Keagan Solorio MD 05/23/19 Hydrocodone/Acetaminophen 5-325* (HYDROCODONE/ACETAMINOPHEN 5-325*) 1 Each Tablet 1 TAB ORAL Q6H PRN for For Pain, #15 TAB 0 Refills Prov: Keagan Solorio MD 05/23/19 Additional Instructions: Follow-up with your doctor as scheduled. Return if symptoms worsen. Keagan Solorio MD May 23, 2019 01:17
--- NOTE | 2019-05-23 01:22 | NUR ---
ED Nurse Note: Pt cleared by ERMD for discharge. DC instructions/prescription was given and explained to pt and verbalized understanding of teachings. All medical deviecs such as ID band removed. Pt is AAO x4, ambulatory and left with all personal belongings. Accompanied by daughter.
== END 2019-05-23 01:25 | disposition home or self-care (01) ==
LOC: EMR 01:15
DX: L40.9 Psoriasis, unspecified (principal)
CPT/HCPCS: J7512; Z7502; 99282